=== PATIENT | female | born 1940 | race Native Hawaiian/Other Pacific Islander ===

== ENCOUNTER 2017-01-13 11:46 | Outpatient (CLI) | payer OTHER | END 2017-01-13 20:14 | disposition home or self-care (01) | LOC: US 11:46 | DX: M17.11 Unilateral primary osteoarthritis, right knee (principal) ==

== ENCOUNTER 2017-03-26 09:33 | Outpatient (CLI) | payer OTHER ==
[2017-03-26 10:00] LABS: PLATELET COUNT 129 K/uL (152-353)
[2017-03-26 10:47] LABS: POTASSIUM 3.9 mmol/L (3.6-5.2)
== END 2017-03-26 19:12 | disposition home or self-care (01) ==
LOC: LABW 09:33
PROVIDERS: Internal Medicine
DX: R53.1 Weakness (principal)
CPT/HCPCS: 36415; 80053; 81000; 82533; 84439; 84443; 85027

== ENCOUNTER 2017-03-31 10:31 | Outpatient (CLI) | payer OTHER | END 2017-03-31 19:22 | disposition home or self-care (01) | LOC: LABW 10:31 | DX: D64.9 Anemia, unspecified (principal) | CPT/HCPCS: 36415; 82272; 82607; 82728; 82747; 83540; 84466 ==

== ENCOUNTER 2017-05-11 14:39 | Emergency (ER) | payer OTHER ==
[~2017-05-11] VITALS: Ht 157.5 cm; Wt 67.6 kg
[2017-05-11 15:29] VITALS: BP 161/70; TEMP 98.5
== END 2017-05-11 15:29 | disposition home or self-care (01) ==
LOC: ED 14:39
DX: S46.211A Strain of muscle, fascia and tendon of other parts of biceps, right arm, initial encounter (principal); X58.XXXA Exposure to other specified factors, initial encounter; Y93.89 Activity, other specified; Y92.89 Other specified places as the place of occurrence of the external cause; Y99.8 Other external cause status
CPT/HCPCS: 99281

== ENCOUNTER 2017-05-12 15:00 | Outpatient (CLI) | payer OTHER | END 2017-05-12 19:14 | disposition home or self-care (01) | LOC: US 15:00 | DX: M79.601 Pain in right arm (principal) ==

== ENCOUNTER 2017-07-22 13:23 | Outpatient (CLI) | payer OTHER ==
[2017-07-22 13:43] LABS: PLATELET COUNT 161 K/uL (152-353)
== END 2017-07-22 14:45 | disposition home or self-care (01) ==
LOC: LABW 13:23
PROVIDERS: Internal Medicine
DX: D72.1 Eosinophilia (principal)
CPT/HCPCS: 85027

== ENCOUNTER 2018-11-05 11:03 | Outpatient (CLI) | payer OTHER ==
[2018-11-05 11:38] LABS: PLATELET COUNT 125 K/uL (152-353)
[2018-11-05 12:02] LABS: POTASSIUM 3.8 mmol/L (3.6-5.2)
== END 2018-11-05 23:25 | disposition home or self-care (01) ==
LOC: LABW 11:03
PROVIDERS: Internal Medicine
DX: I10 Essential (primary) hypertension (principal)
CPT/HCPCS: 36415; 80053; 80061; 81000; 84439; 84443; 85027

== ENCOUNTER 2018-11-12 19:10 | Emergency (ER) | payer OTHER ==
[~2018-11-12] VITALS: Ht 154.9 cm; Wt 72.1 kg
[2018-11-12 19:57] LABS: PLATELET COUNT 133 K/uL (152-353)
[2018-11-12 20:57] VITALS: BP 180/79; TEMP 98.1
== END 2018-11-12 21:03 | disposition home or self-care (01) ==
LOC: ED 19:10
DX: N30.80 Other cystitis without hematuria (principal); M79.18 Myalgia, other site; D72.828 Other elevated white blood cell count
CPT/HCPCS: 36415; 80053; 81000; 81002; 85027; 87088; 87502; 87651; 99283

== ENCOUNTER 2019-01-15 09:58 | Outpatient (CLI) | payer OTHER | END 2019-01-15 19:39 | disposition home or self-care (01) | LOC: RAD 09:58 | DX: M25.512 Pain in left shoulder (principal) ==

== ENCOUNTER 2019-05-05 18:18 | Emergency (ER) | payer OTHER ==
[~2019-05-05] VITALS: Ht 154.9 cm; Wt 69.4 kg
[2019-05-05 18:23] VITALS: TEMP 101.3
[2019-05-05 19:08] LABS: PLATELET COUNT 126 K/uL (152-353)
[2019-05-05 19:20] LABS: POTASSIUM 3.6 mmol/L (3.6-5.2); SODIUM 141 mmol/L (136-145)
[2019-05-05 22:45] VITALS: BP 133/58
== END 2019-05-05 22:46 | disposition home or self-care (01) ==
LOC: ED 18:18
PROVIDERS: Emergency Medicine
DX: R11.2 Nausea with vomiting, unspecified (principal); K29.60 Other gastritis without bleeding; R00.0 Tachycardia, unspecified
CPT/HCPCS: 80053; 81000; 82550; 82553; 84484; 85027; 87502; 93005; 96360; 96374; 96375; 99284; J1885; J2405

== ENCOUNTER 2019-05-20 10:04 | Outpatient (CLI) | payer OTHER | END 2019-05-20 19:52 | disposition home or self-care (01) | LOC: RAD 10:04 | DX: M89.9 Disorder of bone, unspecified (principal) ==

== ENCOUNTER 2019-06-09 10:40 | Outpatient (CLI) | payer OTHER ==
[2019-06-09 10:53] LABS: PLATELET COUNT 127 K/uL (152-353)
[2019-06-09 11:03] LABS: POTASSIUM 4.2 mmol/L (3.6-5.2)
== END 2019-06-09 23:48 | disposition home or self-care (01) ==
LOC: LABW 10:40
PROVIDERS: Nurse Practitioner Family
DX: M05.79 Rheumatoid arthritis with rheumatoid factor of multiple sites without organ or systems involvement (principal); M35.3 Polymyalgia rheumatica
CPT/HCPCS: 36415; 80053; 85027

== ENCOUNTER 2019-07-07 09:45 | Outpatient (CLI) | payer OTHER ==
[2019-07-07 09:57] LABS: PLATELET COUNT 136 K/uL (152-353)
[2019-07-07 10:12] LABS: POTASSIUM 3.9 mmol/L (3.6-5.2)
== END 2019-07-07 19:30 | disposition home or self-care (01) ==
LOC: LABW 09:45
PROVIDERS: Nurse Practitioner Family
DX: M05.79 Rheumatoid arthritis with rheumatoid factor of multiple sites without organ or systems involvement (principal); M35.3 Polymyalgia rheumatica
CPT/HCPCS: 36415; 80053; 85027

== ENCOUNTER 2019-07-14 09:32 | Outpatient (CLI) | payer OTHER ==
[2019-07-14 09:59] LABS: PLATELET COUNT 130 K/uL (152-353)
[2019-07-14 10:19] LABS: POTASSIUM 3.9 mmol/L (3.6-5.2)
== END 2019-07-14 23:59 ==
LOC: LABW 09:32
PROVIDERS: Internal Medicine
DX: I10 Essential (primary) hypertension (principal)
CPT/HCPCS: 36415; 80053; 80061; 81000; 84439; 84443; 85027

== ENCOUNTER 2019-12-07 12:20 | Outpatient (CLI) | payer OTHER | END 2019-12-07 19:44 | disposition home or self-care (01) | LOC: RAD 12:20 | DX: J45.909 Unspecified asthma, uncomplicated (principal) ==

== ENCOUNTER 2020-01-09 17:30 | Emergency (ER) | payer OTHER ==
[~2020-01-09] VITALS: Ht 154.9 cm; Wt 69.4 kg
[2020-01-09 18:44] LABS: PLATELET COUNT 139 K/uL (152-353)
[2020-01-09 18:54] LABS: POTASSIUM 3.8 mmol/L (3.6-5.2); SODIUM 139 mmol/L (136-145)
[2020-01-09 20:00] VITALS: BP 139/76; TEMP 98.4
== END 2020-01-09 20:00 | disposition home or self-care (01) ==
LOC: ED 17:30
PROVIDERS: Family Medicine
DX: I10 Essential (primary) hypertension (principal); R51 Headache
CPT/HCPCS: 80053; 81000; 84484; 85027; 93005; 99283

== ENCOUNTER 2020-04-27 14:27 | Outpatient (CLI) | payer OTHER ==
[2020-04-27 14:50] LABS: PLATELET COUNT 145 K/uL (152-353)
[2020-04-27 15:09] LABS: POTASSIUM 3.6 mmol/L (3.6-5.2)
== END 2020-04-27 22:26 | disposition home or self-care (01) ==
LOC: LAB 14:27
PROVIDERS: Internal Medicine
DX: I10 Essential (primary) hypertension (principal)
CPT/HCPCS: 80053; 80061; 81000; 84439; 84443; 85027

== ENCOUNTER 2020-10-14 10:16 | Inpatient (IN) | payer OTHER ==
[~2020-10-14] VITALS: Ht 154.9 cm; Wt 67.2 kg
[2020-10-14 10:28] VITALS: BP 121/61; TEMP 99.7
[2020-10-14 10:56] LABS: PLATELET COUNT 141 K/uL (152-353)
[2020-10-14 11:19] LABS: PARTIAL THROMBOPLASTIN TIME 24.5 SECONDS (24.5-33.6)
[2020-10-14 13:49] VITALS: BP 125/86; TEMP 98.8; Ht 154.9 cm; Wt 67.2 kg
[2020-10-14 16:00] VITALS: BP 100/38; TEMP 98.4
[2020-10-14] MEDS ORDERED: ALPR0.5T24 PO (17:36)
[2020-10-14] MEDS ORDERED: PRED10TA27 PO (17:37)
[2020-10-14] MEDS ORDERED: AMLODIPINE BESYLATE PO (17:38)
[2020-10-14] MEDS ORDERED: COZAAR100 MG PO (17:39)
[2020-10-14] MEDS ORDERED: HYDROCHLOROT12.5 M1 PO (17:42)
[2020-10-14] MEDS ORDERED: TRAMADOL HYDROC50 MG PO (17:43)
[2020-10-14] MEDS ORDERED: MONT10TA PO (17:44)
[2020-10-14] MEDS ORDERED: NEXIUM 24HR20 MG PO (17:45)
[2020-10-14] MEDS ORDERED: CETI10TA PO (17:46)
[2020-10-14 20:00] VITALS: BP 99/50; TEMP 98.4
[2020-10-14 23:40] VITALS: BP 112/53; TEMP 98.4
[2020-10-15 04:00] VITALS: BP 123/59; TEMP 98.6
[2020-10-15 05:48] LABS: PLATELET COUNT 122 K/uL (152-353)
[2020-10-15 06:10] LABS: POTASSIUM 4.5 mmol/L (3.6-5.2)
[2020-10-15 08:00] VITALS: BP 146/64; TEMP 97.9
[2020-10-15 12:00] VITALS: BP 133/65; TEMP 97.8
[2020-10-15 16:00] VITALS: BP 119/48; TEMP 98.3
[2020-10-15 19:59] VITALS: BP 157/70; TEMP 98.6
[2020-10-15 23:51] VITALS: BP 153/69; TEMP 98.5
[2020-10-16 03:44] VITALS: BP 140/60; TEMP 97.9
[2020-10-16 06:20] LABS: POTASSIUM 4.2 mmol/L (3.6-5.2)
[2020-10-16 07:22] LABS: PLATELET COUNT 131 K/uL (152-353)
[2020-10-16 08:00] VITALS: BP 154/55; TEMP 97.7
[2020-10-16 12:39] VITALS: BP 147/82; TEMP 97.7
[2020-10-16] MEDS ORDERED: ASCO500T18 PO (15:18)
[2020-10-16] MEDS ORDERED: ENTERIC COATED325 MG PO (15:18)
[2020-10-16] MEDS ORDERED: PULMICORT180 MCG/AC INH (15:19)
[2020-10-16] MEDS ORDERED: IPRAAER INH (15:21)
[2020-10-16] MEDS ORDERED: FAMOTIDINE20 MG PO (15:21)
[2020-10-16] MEDS ORDERED: ZINC220C4 PO (15:22)
[2020-10-16] MEDS ORDERED: VITAMIN D2000 UNI3 PO (15:26)
[2020-10-16] MEDS ORDERED: AZIT250T3 PO (15:26)
== END 2020-10-16 20:06 | disposition home or self-care (01) | DRG 177 ==
LOC: ED 10:16 → MED/SURG 12:00
PROVIDERS: ADMIT Hospitalist; ATTEND Internal Medicine Endocrinology, Diabetes & Metabolism
DX: U07.1 COVID-19 (principal); J12.89 Other viral pneumonia; J96.01 Acute respiratory failure with hypoxia; N17.9 Acute kidney failure, unspecified; E87.6 Hypokalemia; K21.9 Gastro-esophageal reflux disease without esophagitis; I10 Essential (primary) hypertension; J44.9 Chronic obstructive pulmonary disease, unspecified
CPT/HCPCS: 36415; 36600; 80048; 80053; 82550; 82805; 83880; 84484; 85027; 85610; 85730; 87502; 87635; 87651; 90658; 93005; 94667; 94760; 96360; 96374; 96375; 99284; J0456; J0696; J1100; U0003

== ENCOUNTER 2020-10-27 11:53 | Outpatient (CLI) | payer OTHER ==
[~2020-10-27 11:53] MED LIST: ALPR0.5T24 PO; AMLODIPINE BESYLATE PO; ASCO500T18 PO; AZIT250T3 PO; CETI10TA PO; COZAAR100 MG PO; ENTERIC COATED325 MG PO; FAMOTIDINE20 MG PO; HYDROCHLOROT12.5 M1 PO; IPRAAER INH; MONT10TA PO; NEXIUM 24HR20 MG PO; PRED10TA27 PO; PULMICORT180 MCG/AC INH; TRAMADOL HYDROC50 MG PO; VITAMIN D2000 UNI3 PO; ZINC220C4 PO
[2020-10-27 14:29] LABS: PLATELET COUNT 155 K/uL (152-353)
== END 2020-10-27 19:00 | disposition home or self-care (01) ==
LOC: LAB 11:53
PROVIDERS: ATTEND Internal Medicine
DX: J45.909 Unspecified asthma, uncomplicated (principal); R53.83 Other fatigue
CPT/HCPCS: 80053; 84443; 85027

== ENCOUNTER 2020-11-13 12:43 | Outpatient (CLI) | payer OTHER | END 2020-11-13 19:39 | disposition home or self-care (01) | LOC: LAB 12:43 | PROVIDERS: ATTEND Internal Medicine | DX: Z11.59 Encounter for screening for other viral diseases (principal) | CPT/HCPCS: 87635; G2023; U0003 ==

== ENCOUNTER 2021-07-20 15:00 | Outpatient (CLI) | payer OTHER | END 2021-07-20 22:08 | disposition home or self-care (01) | LOC: RAD 15:00 | PROVIDERS: ATTEND Internal Medicine | DX: Z13.820 Encounter for screening for osteoporosis (principal) ==

== ENCOUNTER 2022-05-08 14:01 | Outpatient (CLI) | payer OTHER ==
[2022-05-08 14:14] LABS: PLATELET COUNT 102 K/uL (152-353)
[2022-05-08 14:33] LABS: POTASSIUM 3.8 mmol/L (3.6-5.2)
== END 2022-05-08 19:14 | disposition home or self-care (01) ==
LOC: LAB 14:01
PROVIDERS: ATTEND Internal Medicine
DX: I10 Essential (primary) hypertension (principal)
CPT/HCPCS: 80053; 80061; 84439; 84443; 85027

== ENCOUNTER 2022-10-12 03:35 | Observation (INO) | payer OTHER ==
[~2022-10-12] VITALS: Ht 154.9 cm; Wt 73.2 kg
[2022-10-12] VITALS (7 sets, daily range): BP systolic 120–175; BP diastolic 59–79; TEMP 97.5–98.3; Ht 154.9 cm; Wt 73.2 kg
[2022-10-12 04:13] LABS: PLATELET COUNT 164 K/uL (152-353)
[2022-10-12] MEDS ORDERED: PRED5TAB3 PO (11:38)
[2022-10-12] MEDS ORDERED: FLUTMIS14 INH (11:58)
[2022-10-13 03:35] VITALS: BP 127/63; TEMP 97.4
[2022-10-13 07:35] VITALS: BP 168/55; TEMP 97.7
[2022-10-13 11:35] VITALS: BP 124/62; TEMP 97.6
[2022-10-13 15:35] VITALS: BP 142/65; TEMP 97.4
[2022-10-13 19:35] VITALS: BP 138/79; TEMP 97.8
[2022-10-14 00:04] VITALS: BP 118/69; TEMP 98
[2022-10-14 03:35] VITALS: BP 128/59; TEMP 97.5
[2022-10-14 11:35] VITALS: BP 117/57; TEMP 97.4
[2022-10-14] MEDS ORDERED: DOCU100C10 PO (13:34)
[2022-10-14] MEDS ORDERED: 904272561 PO (13:35)
[2022-10-14] MEDS ORDERED: MIRALAX17 GM PO (13:35)
[2022-10-14 15:35] VITALS: BP 114/48; TEMP 97.7
== END 2022-10-14 17:26 | disposition home or self-care (01) ==
LOC: ED 03:35 → MED/SURG 05:18
PROVIDERS: ADMIT Family Medicine; ATTEND Internal Medicine
DX: S32.018D Other fracture of first lumbar vertebra, subsequent encounter for fracture with routine healing (principal); N39.0 Urinary tract infection, site not specified; K59.09 Other constipation; R30.0 Dysuria; W18.39XD Other fall on same level, subsequent encounter; K21.9 Gastro-esophageal reflux disease without esophagitis; I10 Essential (primary) hypertension; M06.8A Other specified rheumatoid arthritis, other specified site; F41.8 Other specified anxiety disorders
CPT/HCPCS: 36415; 80053; 81000; 83605; 85027; 87040; 87088; 87635; 96360; 96365; 96367; 96374; 96375; 96376; 99220; 99284; G0378; J1885; J2270; J2405; J2543; J2765; U0003

== ENCOUNTER 2022-10-22 03:20 | Emergency (ER) | payer OTHER ==
[~2022-10-22] VITALS: Ht 154.9 cm; Wt 73.0 kg
[~2022-10-22 03:20] MED LIST changes: +904272561 PO; +DOCU100C10 PO; +FLUTMIS14 INH; +MIRALAX17 GM PO; +PRED5TAB3 PO
[2022-10-22 03:39] VITALS: TEMP 97.8
[2022-10-22 04:09] LABS: PLATELET COUNT 197 K/uL (152-353)
[2022-10-22 04:19] LABS: POTASSIUM 4.3 mmol/L (3.6-5.2)
[2022-10-22 05:00] VITALS: BP 141/60
== END 2022-10-22 09:25 | disposition home or self-care (01) ==
LOC: ED 03:20
PROVIDERS: Emergency Medicine Emergency Medical Services
DX: R10.84 Generalized abdominal pain (principal)
CPT/HCPCS: 36415; 80053; 81002; 82150; 83690; 83735; 84484; 85027; 93005; 96360; 96374; 96375; 96376; 99284; J2270; J2405; J3490; Q9963

== ENCOUNTER 2023-01-15 11:38 | Outpatient (CLI) | payer OTHER ==
[2023-01-15 11:58] LABS: PLATELET COUNT 144 K/uL (152-353)
[2023-01-15 12:22] LABS: POTASSIUM 3.8 mmol/L (3.6-5.2)
== END 2023-01-15 19:26 | disposition home or self-care (01) ==
LOC: LAB 11:38
PROVIDERS: ATTEND Internal Medicine
DX: I10 Essential (primary) hypertension (principal); D64.89 Other specified anemias; M35.3 Polymyalgia rheumatica; M19.90 Unspecified osteoarthritis, unspecified site; J45.909 Unspecified asthma, uncomplicated; F41.8 Other specified anxiety disorders; K21.9 Gastro-esophageal reflux disease without esophagitis
CPT/HCPCS: 80053; 80061; 81000; 84439; 84443; 85027

== ENCOUNTER 2023-02-24 10:28 | Outpatient (CLI) | payer OTHER | END 2023-02-24 20:15 | disposition home or self-care (01) | LOC: RAD 10:28 | PROVIDERS: ATTEND Internal Medicine | DX: J42 Unspecified chronic bronchitis (principal) ==

== ENCOUNTER 2023-08-07 13:21 | Outpatient (CLI) | payer OTHER ==
[2023-08-07 13:47] LABS: PLATELET COUNT 139 K/uL (152-353)
[2023-08-07 14:11] LABS: POTASSIUM 4.1 mmol/L (3.6-5.2)
== END 2023-08-07 18:51 | disposition home or self-care (01) ==
LOC: LAB 13:21
PROVIDERS: ATTEND Internal Medicine
DX: I10 Essential (primary) hypertension (principal); Z79.899 Other long term (current) drug therapy
CPT/HCPCS: 80053; 80061; 81002; 83735; 84439; 84443; 85027